=== PATIENT | male | born 1975 | race Caucasian/White ===

== ENCOUNTER 2018-09-24 10:00 | Emergency (ER) | payer MEDICARE, SELFPAY ==
[2018-09-24] MEDS: LORazepam 2 MG/ML SYRINGE IM (09:59)
[2018-09-24] MEDS: diphenhydrAMINE 50 MG/ML VIAL IM (09:59)
[2018-09-24] MEDS: HALOPERIDOL 5 MG/ML VIAL IM (09:59)
[2018-09-24 10:00] VITALS: BP 115/61; PULSE 61; RESP 15; TEMP 36.4; O2SAT 100
--- NOTE | 2018-09-24 10:08 | ED.PSYCH ---
HPI - Psych General Chief Complaint: Psychiatric Symptoms Stated Complaint: Mental Eval/agitation Time Seen by Provider: 09/24/18 10:00 Source: patient, EMS and police Mode of arrival: EMS History of Present Illness HPI Narrative: This is a 42-year-old male who is brought to the emergency department for agitation. He was at the local grocery store screaming and yelling profanities at patient's. He is normally in a wheelchair according to EMS but can't get up at lunch. They are unsure if he can actually walk or not. One of the EMS crew is very familiar with the patient as well as PD and states that he is often quite agitated and verbally abusive. It sounds as if there may be a psychiatric history as well. In the last week he has been talking about God frequently, there was a description of patient trying jumping in front of a train remotely in the past. Today patient is refusing any evaluation and is generous in the use of the word bitch and cunt to the entire staff. I did ask if we could evaluate him and he does refused. Was asked if he can obtain blood work or urine and he refuses at this time. He can tell me that he wants me to do what God says. He can tell me his name, the year he knows that he is at [facility]. He refuses to answer any other questions at this time other than to state that I need to do what God wants. Review of Systems Review of Systems ROS Unobtainable: Unobtainable due to mental condition Exam Narrative Exam Narrative: GENERAL: Alert and oriented x three, Male in moderate distress. Patient is agitated. HEENT: Head normocephalic, atraumatic, EOMI, pupils reactive, face symmetric, moist mucous membranes NECK: Supple, full range of motion CARDIOVASCULAR: Regular rate and rhythm without murmurs, rubs or gallops. RESPIRATORY: Breath sounds equal bilaterally, no wheezes rales or rhonchi. ABDOMEN: Soft, nontender. Normoactive bowel sounds all 4 quadrants. No guarding or rebound, rigidity, no mass : No CVA tenderness, Normal male genitalia. EXTREMITIES: Patient has full range of motion of his upper extremities. Patient has some left lower extremity patient's 1st 2nd and 3rd toes have cyanosis they fevers slightly cooler but not cold to the touch in comparison to the other toes. Patient does have a palpable dorsalis pedis as well as femoral pulse. NEUROLOGICAL: Cranial nerves II through XII grossly intact. Moving all extremities SKIN: Warm, dry, no petechiae, no rashes. Initial Vital Signs Initial Vital Signs: Vital Signs Temperature 97.6 F 09/24/18 10:00 Pulse Rate 61 09/24/18 10:00 Respiratory Rate 15 09/24/18 10:00 Blood Pressure 115/61 09/24/18 10:00 Pulse Oximetry 100 09/24/18 10:00 Scores GCS Amos coma scale eye opening: Spontaneous Amos coma scale verbal response: Orientated Brooks coma scale motor response: Obey commands ( Does not obey commands but has full use of his limbs) Brooks coma scale total score: 15 Course Orders Ordered: ED Orders 09/24/18 10:07 Consult to [facility] Stat 09/24/18 11:08 Acetaminophen Stat Complete Blood Count AUTO DIFF Stat Comprehensive Metabolic Panel Stat Ethanol (ETOH) Stat Salicylate Stat Thyroid Stimulating Hormone Stat 09/24/18 11:11 US arterial duplex LE LT Stat XR foot LT 2V Stat 09/24/18 11:13 US periph venous low extrem lt Stat 09/24/18 11:23 Urine Drug Screen, Rapid Stat Discontinued Medications Diphenhydramine HCl (Benadryl) 50 mg IM NOW ONE Stop: 09/24/18 10:28 Last Admin: 09/24/18 09:59 Dose: 50 mg Haloperidol (Haldol) 5 mg IM NOW ONE Stop: 09/24/18 10:28 Last Admin: 09/24/18 09:59 Dose: 5 mg Lorazepam (Ativan) 2 mg IM NOW ONE Stop: 09/24/18 10:29 Last Admin: 09/24/18 09:59 Dose: 2 mg Vital Signs - 8 hr 09/24/18 13:20 09/24/18 17:15 Pulse Rate 58 L 70 Respiratory Rate 15 16 Blood Pressure [Left Arm] 116/71 124/81 Pulse Oximetry 100 100 [facility] - Psych Lab Data Attestation: I reviewed the patient's lab results. Result diagrams: 09/24/18 11:08 09/24/18 11:08 Lab Results 09/24/18 09/24/18 09/24/18 Range/Units 11:08 11:08 11:08 WBC 7.9 (4.5-11.0) X10^3/uL RBC 4.19 L (4.5-5.9) X10^6/uL Hgb 12.7 L (13.5-17.5) g/dL Hct 39.2 L (41-53) % MCV 93.6 (80-100) fL MCH 30.4 (26-34) PG MCHC 32.4 (30-36) % RDW 14.8 (11.6-14.8) % Plt Count 323 (150-400) X10^3/uL Neut % (Auto) 71.2 (50-75) % Lymph % (Auto) 21.1 L (25-40) % [place] % (Auto) 7.2 (3-14) % Eos % (Auto) 0.4 L (2-4) % Baso % (Auto) 0.1 (0-2) % Neut # (Auto) 5600 (3997-1219) /uL Lymph # (Auto) 1700 (6863-0221) /uL [place] # (Auto) 600 (0-900) /uL Eos # (Auto) 0 (0-450) /uL Baso # (Auto) 0 (0-100) /uL Sodium 140 (137-145) mmol/L Potassium 4.5 (3.4-5.1) mmol/L Chloride 104 (98-107) mmol/L Carbon Dioxide 27 (22-32) mmol/L BUN 17 (9-20) mg/dL Creatinine 0.70 (0.66-1.25) mg/dL Estimated GFR > 60.0 (>60) mL/min BUN/Creatinine Ratio 24.3 H (6-22) Glucose 99 (70-100) mg/dL Calcium 9.0 (8.4-10.2) mg/dL Total Bilirubin 0.7 (0.2-1.3) mg/dL AST 23 (17-59) IU/L ALT 29 (21-72) IU/L Alkaline Phosphatase 214 H (38-126) U/L Total Protein 7.6 (6.3-8.2) g/dL Albumin 4.3 (3.5-5.0) g/dL Globulin 3.3 (1.7-4.1) g/dL Albumin/Globulin Ratio 1.3 (1.0-2.8) TSH 0.94 (0.47-4.68) uIU/mL Salicylates < 1.0 (<20) mg/dL Urine Opiates Screen (Negative) Ur Oxycodone Screen (Negative) Urine Methadone Screen (Negative) Acetaminophen < 10 L (10-30) ug/mL Ur Barbiturates Screen (Negative) U Tricyclic Antidepress (Negative) Ur Phencyclidine Scrn (Negative) Ur Amphetamines Screen (Negative) U Methamphetamines Scrn (Negative) Ur MDMA Scrn (Ecstasy) (Negative) U Benzodiazepines Scrn (Negative) Urine Cocaine Screen (Negative) U Marijuana (THC) Screen (Negative) Ethyl Alcohol < 10 mg/dL 09/24/18 Range/Units 11:23 WBC (4.5-11.0) X10^3/uL RBC (4.5-5.9) X10^6/uL Hgb (13.5-17.5) g/dL Hct (41-53) % MCV (80-100) fL MCH (26-34) PG MCHC (30-36) % RDW (11.6-14.8) % Plt Count (150-400) X10^3/uL Neut % (Auto) (50-75) % Lymph % (Auto) (25-40) % [place] % (Auto) (3-14) % Eos % (Auto) (2-4) % Baso % (Auto) (0-2) % Neut # (Auto) (2677-0033) /uL Lymph # (Auto) (6980-3691) /uL [place] # (Auto) (0-900) /uL Eos # (Auto) (0-450) /uL Baso # (Auto) (0-100) /uL Sodium (137-145) mmol/L Potassium (3.4-5.1) mmol/L Chloride (98-107) mmol/L Carbon Dioxide (22-32) mmol/L BUN (9-20) mg/dL Creatinine (0.66-1.25) mg/dL Estimated GFR (>60) mL/min BUN/Creatinine Ratio (6-22) Glucose (70-100) mg/dL Calcium (8.4-10.2) mg/dL Total Bilirubin (0.2-1.3) mg/dL AST (17-59) IU/L ALT (21-72) IU/L Alkaline Phosphatase (38-126) U/L Total Protein (6.3-8.2) g/dL Albumin (3.5-5.0) g/dL Globulin (1.7-4.1) g/dL Albumin/Globulin Ratio (1.0-2.8) TSH (0.47-4.68) uIU/mL Salicylates (<20) mg/dL Urine Opiates Screen Negative (Negative) Ur Oxycodone Screen Negative (Negative) Urine Methadone Screen Negative (Negative) Acetaminophen (10-30) ug/mL Ur Barbiturates Screen Negative (Negative) U Tricyclic Antidepress Negative (Negative) Ur Phencyclidine Scrn Negative (Negative) Ur Amphetamines Screen Negative (Negative) U Methamphetamines Scrn Negative (Negative) Ur MDMA Scrn (Ecstasy) Negative (Negative) U Benzodiazepines Scrn Negative (Negative) Urine Cocaine Screen Negative (Negative) U Marijuana (THC) Screen Positive H (Negative) Ethyl Alcohol mg/dL Urine Dip Bedside Urine Glucose Negative Bedside Urine Bilirubin - Negative Bedside Urine Ketone - Negative Urine Specific [place] 1.020 Bedside Urine Occult Blood - Negative Bedside Urine pH 6.0 Bedside Urine Protein - Negative Bedside Urine Urobilinogen - Negative Bedside Urine Nitrite - Negative Bedside Urine Leukocytes - Negative Esterase Imaging Data DVT US: Radiologist's impression: [place] [address] Ultrasound Report Signed Patient: Judie Montero#: [id number] : 1975Acct:[id number] Age/Sex: 42 / MDate of Service: 09/24/18 Loc: ED Accession Number: [id number] Procedure: US perip venous low extrem lt Ordering Provider: Jeannie Howard D.O. PROCEDURE: US PERIP VENOUS LOW EXTREM LT INDICATIONS: DISCOLORED TOES TECHNIQUE: Real-time imaging, as well as color and pulse Doppler interrogation, were performed of the lower extremity deep veins from the inguinal ligament to the popliteal fossa. COMPARISON: None. FINDINGS: The deep veins are normally compressible, and free of intraluminal thrombus. Color and pulse Doppler demonstrate normal phasic intraluminal flow. There is normal augmentation response to distal compression maneuver. IMPRESSION: No deep venous thrombosis in the left lower extremity. Dictated by: Dipti Mcdaniels M.D. on 09/24/2018 at 12:28 Approved by: Dipti Mcdaniels M.D. on 09/24/2018 at 12:29 arterial LE US: Radiologist's impression: [address] [address] Ultrasound Report Signed Patient: Dion MonteroMR#: [id number] : 1975Acct:[id number] Age/Sex: 42 / MDate of Service: 09/24/18 Loc: ED Accession Number: [id number] Procedure: US arterial duplex LE LT Ordering Provider: Jeannie Howard D.O. PROCEDURE: US ARTERIAL DUPLEX LE LT INDICATIONS: DISCOLORED TOES TECHNIQUE: Color and pulse Doppler interrogation was performed of the left lower extremity arterial system, with image documentation. COMPARISON: None. FINDINGS: On the grayscale images, no occlusions or focal areas of narrowing are appreciated. 2-vessel flow is evident to the level of the ankle. Common femoral artery: 142 cm/sec, with triphasic flow. Deep femoral artery: 93 cm/sec, with triphasic flow. Proximal superficial femoral artery: 109 cm/sec, with monophasic flow. Mid superficial femoral artery: 132 cm/sec, with monophasic flow. Distal superficial femoral artery: 107 cm/sec, with monophasic flow. Popliteal artery: 103 and cm/sec, with monophasic flow. Posterior tibial artery: 129 cm/sec, with monophasic flow. Anterior tibial artery/dorsalis pedis: 84 cm/sec, with monophasic flow. IMPRESSION: 1. No areas of high-grade narrowing or occlusion are evident within the left lower extremity arterial system. There is at least 2 vessel flow to the level of the ankle. 2. Transition from triphasic to monophasic waveforms at the beginning of the superficial femoral artery does raise the question of possible narrowing of the origin of this vessel, which is not apparent on this exam. The need for better characterization utilizing CT angiography of the left lower extremity arterial system may be determined clinically. Dictated by: Danny Onofre M.D. on 09/24/2018 at 11:02 Approved by: Danny Onofre M.D. on 09/24/2018 at 11:07 foot xray: Radiologist's impression: Dion Montero 42 M [address] [address] XRay Report Signed Patient: Dion MonteroMR#: [id number] : 1975Acct:[id number] Age/Sex: 42 / MDate of Service: 09/24/18 Loc: ED Accession Number: [id number] Procedure: XR foot LT 2V Ordering Provider: Jeannie Howard D.O. PROCEDURE: XR FOOT LT 2V INDICATIONS: Discoloration of 1,2,3 toes TECHNIQUE: 3 views of the foot were acquired. COMPARISON: None. FINDINGS: Bones: The bone mineralization is diffusely decreased in which does result in difficulty evaluating for subtle fractures. No displaced fractures or dislocations are appreciated. There are prominent degenerative changes noted involving the subtalar joints. There may also be degenerative changes of the tibiotalar joint. Postoperative changes of the distal tibia are incidentally noted, not completely evaluated on this exam. Soft tissues: No radiopaque foreign bodies are evident. The overlying soft tissues are within normal limits. IMPRESSION: 1. Osteopenia without acute fracture evident. 2. Moderate degenerative changes of the hindfoot joints. Dictated by: Danny Onofre M.D. on 09/24/2018 at 11:07 Approved by: Danny Onofre M.D. on 09/24/2018 at 11:09 [facility] Narrative Medical decision making narrative: patient was given a be 54 as he has been physically aggressive in the past Um and refusing any evaluation or a discussion at this time. Per PD and EMS provider that is familiar with the patient from another city locally he is often physically aggressive. There is likely psychiatric history. Patient is not well known to us here at this ER. Attempted to obtain records from [facility]. Social work consult. Records were obtained from [facility] patient had a lower extremity that seemed a little bit redder at that time. He had had injury to his left lower extremity and required sutures to be removed. Patient had some coldness of the left lower leg at that ER stay in July and had arterial ultrasound which showed no significant arterial stenosis notices in the left lower extremity and normal wave through forms throughout. Images were pushed to [facility]. I spoke with Ambreen Alvarenga with vascular. Discussed case. They feel that if patient has a palpable femoral Pulses and no clear stenosis or narrowing although there is change of triphasic to monophasic waveform patient could have this followed up as an outpatient after several weeks and did not need acute intervention. They will not do anything with his toes and see if the improve or worsen. We did discuss that patient has a psychiatric history and the likelihood of him following up at this time in a outpatient setting is unlikely. Patient really evaluated he has a little bit more coherent at this time but still uncooperative and continues to tell me that everyone needs to obey and is verbally abuse to staff. When I asked about his toes he states that they are not his toes, they do not belong to him someone else put them there. And they were not given to him by God. Patient when asked if he had been out in the elements or exposed potentially for frostbite being the cause patient restates the same. We have had recent very cold weather so this could potentially be cause. Patient was also a kicked out of the [employer] and put on no trespassing because of his interactions. Patient states it is because he is in a wheelchair but when we discussed that he has been in a wheelchair and staying there he re-states it is because it is in a wheelchair. Patient makes multiple references to God stating that the police, ER staff and no one else are obeying but that he does. He also makes other statements that I am unable to understand. [facility] contacted and is dispatching for evalution. Patient signed out to Dr. Reyes while awaiting evaluation. Discharge Plan Departure Clinical Impression: Acute psychosis
--- NOTE | 2018-09-24 10:16 | PC.NURSE ---
Patient sitting up on bed had scooted over to door since unable to walk...asked for his notebook and pen and then when we did not comply he began cursing and yelling at us...refusing to give answers to Triage questions, calling us names
--- NOTE | 2018-09-24 10:20 | PC.NURSE ---
Patient scooted back over to mattress on floor and is now laying down resting quietly
--- NOTE | 2018-09-24 10:21 | PC.NURSE ---
Patient refused to let us take his vitals and yelled profanities at us in asking him if we could do so
--- NOTE | 2018-09-24 10:22 | PC.NURSE ---
patient not continues to appear angry, yell, and be uncooperative. pt able sat up appears to be fumbling with legs, then scoots self to door, demanding paper and pen. again explained to patient due to his impulsive inappropriate behavior pt will not be allowed these items at this time. pt begin yelling again calling staff fucking bitch, and cunt then begins yelling different phrases involving god. due to pt arriving being uncooperative and law enforcement was not able to search for weapons increases the unsafe feeling. law enforcement returning for search and to change patient out of his street clothes safely. unknown if pt has weapons of any kind in his layers of clothing.
--- NOTE | 2018-09-24 10:24 | PC.NURSE ---
Patient refused to cooperate and let us take his clothes off him so [employer] said they are returning with the [employer] and will assist us in getting patient undressed out of his street clothes and into our scrubs.
--- NOTE | 2018-09-24 10:38 | PC.NURSE ---
Patient resting on bed and noted rise and fall of chest and his hand movement occasionally, patient laying on their side facing the wall
--- NOTE | 2018-09-24 10:47 | PC.NURSE ---
Patient continues to lay down on bed facing the wall Have noted patient's rise and fall of back and slight hand movement from time to time
--- NOTE | 2018-09-24 11:09 | PC.NURSE ---
[place] police officers came by ER to assist with removing patient's clothing and shoes, we helped patient into disposable scrubs and gave him warm blankets. Patient was resisting and cursing at us, but we were able to remove his clothing and get scrubs on him...RN was able to obtain his vital signs and draw some blood from the patient with police assist....patient now resting on mattress
--- NOTE | 2018-09-24 11:11 | DI.RAD.S_ITS ---
PROCEDURE: XR FOOT LT 2V INDICATIONS: Discoloration of 1,2,3 toes TECHNIQUE: 3 views of the foot were acquired. COMPARISON: None. FINDINGS: Bones: The bone mineralization is diffusely decreased in which does result in difficulty evaluating for subtle fractures. No displaced fractures or dislocations are appreciated. There are prominent degenerative changes noted involving the subtalar joints. There may also be degenerative changes of the tibiotalar joint. Postoperative changes of the distal tibia are incidentally noted, not completely evaluated on this exam. Soft tissues: No radiopaque foreign bodies are evident. The overlying soft tissues are within normal limits. IMPRESSION: 1. Osteopenia without acute fracture evident. 2. Moderate degenerative changes of the hindfoot joints. Dictated by: Danny Onofre M.D. on 09/24/2018 at 11:07 Approved by: Danny Onofre M.D. on 09/24/2018 at 11:09
--- NOTE | 2018-09-24 11:11 | DI.US.S_ITS ---
PROCEDURE: US ARTERIAL DUPLEX LE LT INDICATIONS: DISCOLORED TOES TECHNIQUE: Color and pulse Doppler interrogation was performed of the left lower extremity arterial system, with image documentation. COMPARISON: None. FINDINGS: On the grayscale images, no occlusions or focal areas of narrowing are appreciated. 2-vessel flow is evident to the level of the ankle. Common femoral artery: 142 cm/sec, with triphasic flow. Deep femoral artery: 93 cm/sec, with triphasic flow. Proximal superficial femoral artery: 109 cm/sec, with monophasic flow. Mid superficial femoral artery: 132 cm/sec, with monophasic flow. Distal superficial femoral artery: 107 cm/sec, with monophasic flow. Popliteal artery: 103 and cm/sec, with monophasic flow. Posterior tibial artery: 129 cm/sec, with monophasic flow. Anterior tibial artery/dorsalis pedis: 84 cm/sec, with monophasic flow. IMPRESSION: 1. No areas of high-grade narrowing or occlusion are evident within the left lower extremity arterial system. There is at least 2 vessel flow to the level of the ankle. 2. Transition from triphasic to monophasic waveforms at the beginning of the superficial femoral artery does raise the question of possible narrowing of the origin of this vessel, which is not apparent on this exam. The need for better characterization utilizing CT angiography of the left lower extremity arterial system may be determined clinically. Dictated by: Danny Onofre M.D. on 09/24/2018 at 11:02 Approved by: Danny Onofre M.D. on 09/24/2018 at 11:07
[2018-09-24 11:13] LABS: Add Manual Diff / Slide Review NO; Basophils Absolute Auto 0 /uL (0-100); Basophils Percent Auto 0.1 % (0-2); Eosinophils Absolute Auto 0 /uL (0-450); Eosinophils Percent Auto 0.4 % (2-4); Hematocrit 39.2 % (41-53); Hemoglobin 12.7 g/dL (13.5-17.5); Lymphocytes Absolute Auto 1700 /uL (1100-4500); Lymphocytes Percent Auto 21.1 % (25-40); Mean Corpuscular HGB Conc 32.4 % (30-36); Mean Corpuscular Hemoglobin 30.4 PG (26-34); Mean Corpuscular Volume 93.6 fL (80-100); Monocytes Absolute Auto 600 /uL (0-900); Monocytes Percent Auto 7.2 % (3-14); Neutrophils Absolute Auto 5600 /uL (1500-7000); Neutrophils Percent Auto 71.2 % (50-75); Platelet Count 323 X10^3/uL (150-400); Red Blood Cell Count 4.19 X10^6/uL (4.5-5.9); Red Cell Distribution Width 14.8 % (11.6-14.8); White Blood Cell Count 7.9 X10^3/uL (4.5-11.0)
--- NOTE | 2018-09-24 11:13 | DI.US.S_ITS ---
PROCEDURE: US PERIPH VENOUS LOW EXTREM LT INDICATIONS: DISCOLORED TOES TECHNIQUE: Real-time imaging, as well as color and pulse Doppler interrogation, were performed of the lower extremity deep veins from the inguinal ligament to the popliteal fossa. COMPARISON: None. FINDINGS: The deep veins are normally compressible, and free of intraluminal thrombus. Color and pulse Doppler demonstrate normal phasic intraluminal flow. There is normal augmentation response to distal compression maneuver. IMPRESSION: No deep venous thrombosis in the left lower extremity. Dictated by: Dipti Mcdaniels M.D. on 09/24/2018 at 12:28 Approved by: Dipti Mcdaniels M.D. on 09/24/2018 at 12:29
--- NOTE | 2018-09-24 11:13 | PC.NURSE ---
Gave patient warm blanket and pillow for his head
[2018-09-24 11:25] LABS: Acetaminophen < 10 ug/mL (10-30); Alanine Aminotransferase 29 IU/L (21-72); Albumin 4.3 g/dL (3.5-5.0); Albumin Globulin Ratio 1.3 (1.0-2.8); Alkaline Phosphatase 214 U/L (38-126); Aspartate Aminotransferase 23 IU/L (17-59); BUN Creatinine Ratio 24.3 (6-22); Bilirubin Total 0.7 mg/dL (0.2-1.3); Blood Urea Nitrogen 17 mg/dL (9-20); Carbon Dioxide 27 mmol/L (22-32); Chloride 104 mmol/L (98-107); Estimated Glomerular Filt Rate > 60.0 mL/min (>60); Ethanol (ETOH) < 10 mg/dL; Globulin 3.3 g/dL (1.7-4.1); Glucose 99 mg/dL (70-100); HEMOLYSIS < 15 (0-50); Potassium 4.5 mmol/L (3.4-5.1); Sodium 140 mmol/L (137-145); Total Protein 7.6 g/dL (6.3-8.2)
[2018-09-24 11:30] LABS: Salicylate < 1.0 mg/dL (<20)
--- NOTE | 2018-09-24 11:54 | PC.NURSE ---
Stood by assist for [employer] and X-ray Jumia for testing, patient cooperative and then asked for lunch... stated she will order patient lunch tray
[2018-09-24 12:08] LABS: Urine Tetrahydrocannabinol Positive (Negative)
[2018-09-24 12:09] LABS: Urine Amphetamines Negative (Negative); Urine Barbiturates Negative (Negative); Urine Benzodiazepines Negative (Negative); Urine Cocaine Negative (Negative); Urine MDMA Negative (Negative); Urine Methadone Negative (Negative); Urine Methamphetamines Negative (Negative); Urine Morphine/Opi cutoff 2000 Negative (Negative); Urine Oxycodone Negative (Negative); Urine Phencyclidine Negative (Negative); Urine Tricyclic Antidepressant Negative (Negative)
[2018-09-24 12:21] LABS: Thyroid Stimulating Hormone 0.94 uIU/mL (0.47-4.68)
--- NOTE | 2018-09-24 12:22 | PC.NURSE ---
Attempted to awake patient to give him lunch tray, but he did not wake up to eat...will offer lunch tray later
--- NOTE | 2018-09-24 13:05 | PC.NURSE ---
Keep trying to offer patient his lunch tray but patient refusing and choosing to sleep instead
[2018-09-24 13:20] VITALS: BP 116/71; PULSE 58; RESP 15; O2SAT 100
--- NOTE | 2018-09-24 13:20 | PC.NURSE ---
Patient asked for his right leg to be raised so placed it on a pillow for more comfort
--- NOTE | 2018-09-24 14:43 | PC.NURSE ---
Have offered patient lunch tray and he asked what was on it and declined food
--- NOTE | 2018-09-24 14:59 | PC.NURSE ---
Gave patient chocolate pudding
[2018-09-24 17:15] VITALS: BP 124/81; PULSE 70; RESP 16; O2SAT 100
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
--- NOTE | 2018-09-24 17:54 | PC.NURSE ---
Went with Hollie Montejo into patient's room to assist her with talking with the patient and she was able to get some information from him, but he spoke at a low volume with blanket over his face and spoke very quickly and at times did not make sense with what he was saying...
--- NOTE | 2018-09-24 18:12 | PC.NURSE ---
pt appears angry, pt states wheres my dinner bitch pt then states god my father no one is telling the truth, god my father lies lies pt appears to be escalating, pt having angry expressions, pt grinding teeth. pt raising voice states give me my food bitch, give me my food cunt. pt asked to stop address staff with these statements, and name calling. pt again repeats name calling of bitch and cunt
--- NOTE | 2018-09-24 18:16 | PC.NURSE ---
MAGGI/ELSIE Note: Pt. started to yell out loud I need to pee. why you disobeying god cunt I assisted Pt. with urinal. Pt. kept yelling out loud. Kayla came in and Pt. kept insulting her calling her a bitch. MARINE SERVICE STATION ATTENDANT-ELSIE Herr , NORMA Salomon, and myself witnessed in the room. notified.
--- NOTE | 2018-09-24 18:30 | PC.NURSE ---
AUTOMATIC BANDSAW TENDER/ELSIE Note: Pt. is still yelling out. Pt. is requesting to call the police. Pt. stated you people don't deserve to live. honest to god. disobeying god. RN notified.
--- NOTE | 2018-09-24 19:05 | PC.NURSE ---
SOLAR ENERGY INSTALLATION MANAGER Pt asking how many lies am I going to be told in this hospital then mumbling to self.
--- NOTE | 2018-09-24 19:19 | PC.NURSE ---
pt is wheelchair bound, pt appears to have bilateral foot drop. feet are grossly unkept. toe nails are long, curling over, feet smell and are very dirty. toes are black in color, and peeling.
--- NOTE | 2018-09-24 19:29 | PC.NURSE ---
sludge control attendant pt given dinner tray. Aggitated about meal and juice on tray. Took off apple juice and gave orange juice. Sitting up in bed with tray on lap eating.
--- NOTE | 2018-09-24 19:31 | PC.NURSE ---
nut grader Asking to borrow a cellphone so he can make a call. States we are keeping him from calling people he needs to call.
--- NOTE | 2018-09-24 19:40 | PC.NURSE ---
electro mechanical engineer pt kicked tray off bed when finished and started asking about cellphone. nurse entered room to talk to patient about why he cant use phone until someone comes in to talk to him
--- NOTE | 2018-09-24 19:40 | PC.NURSE ---
Responded to pt room as he was calling out for phone call, calling aide names, threw tray off bed. Pt states Cunt! Call me Asshole when you speak to me!! Informed DSR would be here within 2 hours. States Call me Asshole when you speak to me Cunt! Pt asked to keep his voice down. Door shut 75% to decrease stimulation. Pt rolled over and closed eyes.
--- NOTE | 2018-09-24 20:54 | PC.NURSE ---
credit reporter pt lying on side facing the wall sleeping
--- NOTE | 2018-09-24 23:46 | PC.NURSE ---
outside sales representative insurance pt sleeping
[2018-09-25] VITALS (7 sets, daily range): BP systolic 98–104; BP diastolic 59–62; PULSE 63; RESP 16–18; O2SAT 98
--- NOTE | 2018-09-25 02:08 | PC.NURSE ---
0208 Patient yelled. I asked if I could help with anything. He said yes, you black bitch you can go to hel. I said Excuse me? Patient didn't respond. Told RN.
--- NOTE | 2018-09-25 02:40 | PC.NURSE ---
Patient began cursing and praying saying that he damns all those on this earth, excluding children, heavenly father. Patient then yawned and stopped talking
--- NOTE | 2018-09-25 02:49 | PC.NURSE ---
Patient continuously praying while under the blankets to God the father. Patient is praying for damnation of staff and the rest of the earth. Then shouted out that you are a cunt to me. I asked if he wanted anything to drink. He said juice or soda. I said I may not have those, would he like water. He said no I do not want vodka.
--- NOTE | 2018-09-25 03:10 | PC.NURSE ---
0310 while doing vitals asked patient to stop talking so I could get a reading patient made anti female remarks then started talking to God and praying more
--- NOTE | 2018-09-25 03:45 | PC.NURSE ---
FOOD SAFETY SCIENTIST note: patient is cursing at staff and praying. Turned off lights in hopes he sleeps. He is just in there under the blankets swearing.
--- NOTE | 2018-09-25 05:10 | PC.NURSE ---
STATION AIR TRAFFIC CONTROL SPECIALIST note: patient yelling out about having a court and you need to get me to court you dumb bitch. I told him don't call be a dumb bitch. He said well then don't be a cunt.
--- NOTE | 2018-09-25 07:39 | PC.NURSE ---
Patient mentioned that he had a court hearing today and that he has a pending warrant...he said that we should all and that because he is not allowed to bear arms he can't help get rid of all the people who don't belong
--- NOTE | 2018-09-25 08:23 | PC.NURSE ---
Offered patient breakfast tray and he again asked about what time it was and that he has a court date today at 830a to 9a and that we brought him here illegally and I informed him that I am in process of checking out if he does have a court date appearance today...need to wait until [address] office [address]....
--- NOTE | 2018-09-25 08:28 | PC.NURSE ---
Informed patient that breakfast available and he has declined the meal at this time
--- NOTE | 2018-09-25 08:55 | PC.NURSE ---
pt escalating in behavior. pt demanding food tray. Food tray checked for safety and offered to patient, pt refusing. pt begins yelling states i was illegally brought here. pt's door partially closed to decrease stimulation of outside noises to calm patient. pt yelling ok god my father, id like a service department manager god my father, they dont like the truth god my father so they closed the door god my father.
--- NOTE | 2018-09-25 08:55 | PC.NURSE ---
Called [facility] court and was informed that patient has court appointment today at , informed them that he will be unable to attend and they requested a note from our ER physician stating that...Faxed over the Dr's note to [facility] court so they are aware that he is unable to attend
--- NOTE | 2018-09-25 09:00 | PC.NURSE ---
Patient asked how long he will be here and started yelling and using profanity and stating that all of us deserve to !.....then covers his head with a blanket
--- NOTE | 2018-09-25 09:06 | PC.NURSE ---
Anytime try to interact with patient to offer breakfast, update him or ask if needs anything he begins yelling that we all deserve to ...that the world is overpopulated with too many people that don't deserve to be here
--- NOTE | 2018-09-25 09:10 | PC.NURSE ---
Patient states that I am not obeying God's law
--- NOTE | 2018-09-25 09:16 | PC.NURSE ---
Patient asked what time is it?....
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
--- NOTE | 2018-09-25 11:23 | PC.NURSE ---
Patient asked Why did you take the plate? Patient asked what time is it?...informed him and he stated Oh heavenly father I am patiently waiting Oh God my father Brought patient urinal and when he was done he accidentally spilled some of the urine on the floor Patient asked how long is has to stay in the room illegally?
--- NOTE | 2018-09-25 11:49 | PC.NURSE ---
Lunch janna arrived and offered it to patient, he declined for now....
--- NOTE | 2018-09-25 12:17 | PC.NURSE ---
Patient asked who is wearing my clothes? Informed him that no one is and that they have been placed safely in patient belonging bags and locked up for him.
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
--- NOTE | 2018-09-25 12:35 | PC.NURSE ---
pt escalating, pt raising voice. attempted to calm pt by talking about his son, pt raises voice states why do you care bitch states why is she not arrested bitch, states whyd she take my sons virginity without asking bitch. pt continues to repeat self.
--- NOTE | 2018-09-25 12:51 | PC.NURSE ---
Marisol GENAO at bedside.
--- NOTE | 2018-09-25 12:55 | PC.NURSE ---
DCR arrived and is speaking with the patient, he expressed you people don't deserve to live Asked DCR when he will be able to see his son...
--- NOTE | 2018-09-25 13:05 | PC.NURSE ---
Patient very agitated. Talking to self and being verbally abusive to any staff who tries to interact. Continuously calling bitch and cunt whenever trying to assist him. Refusing to answer nurses questions on what meds he takes. Thinks he is talking to God.
--- NOTE | 2018-09-25 13:07 | PC.NURSE ---
Patient saying intentionally going to piss on the floor
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
--- NOTE | 2018-09-25 13:16 | PC.NURSE ---
Patient asking to see DCR. When try and explain they are coming in the room shortly gets very agitated and begins calling me a bitch.
--- NOTE | 2018-09-25 13:19 | PC.NURSE ---
Marisol DCR here for evaluation. attempted to get pt's medications he was dc'd with at the last admission at [facility] to help treat pt's current symptoms of yelling at staff, cursing, speaking about god. [facility] refused to provide information. pt continues to call staff punk andressa juarez pt refusing to take oral medications for symptoms. states i am calm, then yells at staff calling names little bitch, stupid bitch. pt uncooperative, impulsive, irrational, pt angry, balling up fists, griting teeth, and raising upper body off bed. talked to dr meza who ordered IM zyprexa, pt continues to yell at staff, and become more escalated. IM administered into left leg, pt tolerated injection physically without difficulty, verbally continues inappropriate comments and behaviro.
--- NOTE | 2018-09-25 13:22 | PC.NURSE ---
Patient continuing to be very agitated. Asking for his clothes, repeatedly calling larry and carlo.
[2018-09-25] MEDS: OLANZapine 10 MG VIAL IM (13:26)
--- NOTE | 2018-09-25 13:59 | PC.NURSE ---
Patient still agitated. When I do not respond to his yelling he says you're ignoring the son of God and going to susu juarez.
--- NOTE | 2018-09-25 14:33 | PC.NURSE ---
Patient continues to yell out when am I going to out of this room carlo juarez?....
--- NOTE | 2018-09-25 14:44 | PC.NURSE ---
Attempted to take patient's vitals and he refused to cooperate
--- NOTE | 2018-09-25 14:44 | PC.NURSE ---
Patient stated Am I being held illegally bitch? Patient state How am I going to get to the [facility] bit?...then says the cunt bitmike refuses to answer! what time do i get to check in bitch?' ...the states they're not going to let me check in god, that bitch won't. what you looking bitch?'' hey Bitch your going to hel ...then yelled random things. hey bitch when can i speak w/ that DCR cunt?'' Patient calling out Hello!....then states they're not answering God! They are going to ignore me God! When do I get to go to the [facility]? What time is it cunt bitch? Cunt are you going to let me use the phone?
--- NOTE | 2018-09-25 15:20 | PC.NURSE ---
Patient asked where is my dinner bitch?...
--- NOTE | 2018-09-25 15:25 | PC.NURSE ---
Addendum entered by Autumn Garg R.N. 09/25/18 22:12: @2212 Pt asks, What time is it, population bitch? This RN provided time. Patient mumbled, God my Father, dad, patient, person, God my father, I want to blow this planet up, god my father, these people that don't deserve to be here. Patient stays wrapped in blanket, hiding face. Original Note: Addendum entered by Autumn Garg R.N. 09/25/18 21:37: @2130 pt requested urinal; voided 200 ml Original Note: Addendum entered by Autumn Garg R.N. 09/25/18 20:36: @ 2000 Pt resting, repositioning independently in bed; pt declined vital signs to rn dischargeTobin Original Note: Addendum entered by Autumn Garg R.N. 09/25/18 17:36: @ 1645 pt urinated on floor. This RN cleaned urine with blanket. Original Note: Addendum entered by Autumn Garg R.N. 09/25/18 17:33: @ 1735 pt says, God my father, except myself and maybe 100 people deserve to live on this planet. The rest deserve to . That is the truth. The whole lyons truth. Original Note: Addendum entered by Autumn Garg R.N. 09/25/18 17:31: @1700 pt declines dinner Original Note: Addendum entered by Autumn Garg R.N. 09/25/18 16:13: @1605 pt yelled, When's dinner bitch, cunt? This RN looked in room, and stated, at 5. Pt under bed covers, on side, facing door, although face not visible. Patient continues to turn frequently in bed, restless. Pt reciting, God the father, are you obeying God, you are going to hell, you dumb bitch. This RN asked patient, are you hungry. Pt responds, redirects the question. @1622 this RN asks patient, are you thirsty, can I get you some chocolate milk? Patient responds with, I would like to know when you are going to obey god, I would razor blade vaginas, you people who work for the [employer], 95% are going to [facility] Original Note: @ 8086 pt sleeping
--- NOTE | 2018-09-25 15:51 | CM.SWNOTE ---
COCOA BEAN CLEANER Note: Received call this AM re: detainment and placement. Spoke with RN/Umm whom reports that patient waiting on bed for involuntary placement. COCOA BEAN CLEANER placed call to [facility]. Assigned DCR is Marisol Moore cell# [phone]. Per Marisol, she will come to [facility] today and re-attempt bed placement. As of 4:00pm no bed found. Notified ED/COCOA BEAN CLEANER Hollie of above. P: Pending psychiatric placement. RITA Phillips
--- NOTE | 2018-09-25 17:12 | ED.PSYCH ---
HPI - Psych General Chief Complaint: Psychiatric Symptoms Stated Complaint: Mental Eval/agitation Time Seen by Provider: 09/24/18 10:00 Related Data Home Medications Medication Instructions Recorded Confirmed aripiprazole 10 mg PO DAILY 09/25/18 09/25/18 benztropine 1 mg PO BID 09/25/18 09/25/18 gabapentin 300 mg PO TID 09/25/18 09/25/18 haloperidol 5 mg PO BID 09/25/18 09/25/18 haloperidol 20 mg PO BEDTIME 09/25/18 09/25/18 naloxone [Narcan] 1 dose INTRANASAL DIRECTED 09/25/18 09/25/18 oxycodone 5 mg PO Q4-6H PRN 09/25/18 09/25/18 Exam Initial Vital Signs Initial Vital Signs: Vital Signs Temperature 97.6 F 09/24/18 10:00 Pulse Rate 61 09/24/18 10:00 Respiratory Rate 15 09/24/18 10:00 Blood Pressure 115/61 09/24/18 10:00 Pulse Oximetry 100 09/24/18 10:00 Course Course Narrative: received in signout from Dr. Mcginnis. Patient is obviously not capable of caring for himself and poses significant risk to himself and others if not placed into a psych facility. Will continue to provide a comfortable place for him to sleep and monitor him and hope for better luck with available beds tomorrow Orders Ordered: Discontinued Medications Diphenhydramine HCl (Benadryl) 50 mg IM NOW ONE Stop: 09/24/18 10:28 Last Admin: 09/24/18 09:59 Dose: 50 mg Haloperidol (Haldol) 5 mg IM NOW ONE Stop: 09/24/18 10:28 Last Admin: 09/24/18 09:59 Dose: 5 mg Haloperidol (Haldol) 5 mg IM NOW ONE Stop: 09/25/18 03:55 Last Admin: 09/25/18 04:02 Dose: Not Given Lorazepam (Ativan) 2 mg IM NOW ONE Stop: 09/24/18 10:29 Last Admin: 09/24/18 09:59 Dose: 2 mg Olanzapine (Zyprexa) 10 mg PO NOW ONE Stop: 09/25/18 13:07 Last Admin: 09/25/18 13:26 Dose: Not Given Olanzapine (Zyprexa) 10 mg IM NOW ONE Stop: 09/25/18 13:12 Last Admin: 09/25/18 13:26 Dose: 10 mg Vital Signs - 8 hr 09/25/18 19:15 09/25/18 23:56 Respiratory Rate 16 16 MDM - Psych Lab Data Result diagrams: 09/24/18 11:08 09/24/18 11:08 Lab Results 09/24/18 09/24/18 09/24/18 Range/Units 11:08 11:08 11:08 WBC 7.9 (4.5-11.0) X10^3/uL RBC 4.19 L (4.5-5.9) X10^6/uL Hgb 12.7 L (13.5-17.5) g/dL Hct 39.2 L (41-53) % MCV 93.6 (80-100) fL MCH 30.4 (26-34) PG MCHC 32.4 (30-36) % RDW 14.8 (11.6-14.8) % Plt Count 323 (150-400) X10^3/uL Neut % (Auto) 71.2 (50-75) % Lymph % (Auto) 21.1 L (25-40) % [place] % (Auto) 7.2 (3-14) % Eos % (Auto) 0.4 L (2-4) % Baso % (Auto) 0.1 (0-2) % Neut # (Auto) 5600 (4172-7235) /uL Lymph # (Auto) 1700 (0550-4873) /uL [place] # (Auto) 600 (0-900) /uL Eos # (Auto) 0 (0-450) /uL Baso # (Auto) 0 (0-100) /uL Sodium 140 (137-145) mmol/L Potassium 4.5 (3.4-5.1) mmol/L Chloride 104 (98-107) mmol/L Carbon Dioxide 27 (22-32) mmol/L BUN 17 (9-20) mg/dL Creatinine 0.70 (0.66-1.25) mg/dL Estimated GFR > 60.0 (>60) mL/min BUN/Creatinine Ratio 24.3 H (6-22) Glucose 99 (70-100) mg/dL Calcium 9.0 (8.4-10.2) mg/dL Total Bilirubin 0.7 (0.2-1.3) mg/dL AST 23 (17-59) IU/L ALT 29 (21-72) IU/L Alkaline Phosphatase 214 H (38-126) U/L Total Protein 7.6 (6.3-8.2) g/dL Albumin 4.3 (3.5-5.0) g/dL Globulin 3.3 (1.7-4.1) g/dL Albumin/Globulin Ratio 1.3 (1.0-2.8) TSH 0.94 (0.47-4.68) uIU/mL Salicylates < 1.0 (<20) mg/dL Urine Opiates Screen (Negative) Ur Oxycodone Screen (Negative) Urine Methadone Screen (Negative) Acetaminophen < 10 L (10-30) ug/mL Ur Barbiturates Screen (Negative) U Tricyclic Antidepress (Negative) Ur Phencyclidine Scrn (Negative) Ur Amphetamines Screen (Negative) U Methamphetamines Scrn (Negative) Ur MDMA Scrn (Ecstasy) (Negative) U Benzodiazepines Scrn (Negative) Urine Cocaine Screen (Negative) U Marijuana (THC) Screen (Negative) Ethyl Alcohol < 10 mg/dL 09/24/18 Range/Units 11:23 WBC (4.5-11.0) X10^3/uL RBC (4.5-5.9) X10^6/uL Hgb (13.5-17.5) g/dL Hct (41-53) % MCV (80-100) fL MCH (26-34) PG MCHC (30-36) % RDW (11.6-14.8) % Plt Count (150-400) X10^3/uL Neut % (Auto) (50-75) % Lymph % (Auto) (25-40) % [place] % (Auto) (3-14) % Eos % (Auto) (2-4) % Baso % (Auto) (0-2) % Neut # (Auto) (0895-2768) /uL Lymph # (Auto) (3403-3637) /uL [place] # (Auto) (0-900) /uL Eos # (Auto) (0-450) /uL Baso # (Auto) (0-100) /uL Sodium (137-145) mmol/L Potassium (3.4-5.1) mmol/L Chloride (98-107) mmol/L Carbon Dioxide (22-32) mmol/L BUN (9-20) mg/dL Creatinine (0.66-1.25) mg/dL Estimated GFR (>60) mL/min BUN/Creatinine Ratio (6-22) Glucose (70-100) mg/dL Calcium (8.4-10.2) mg/dL Total Bilirubin (0.2-1.3) mg/dL AST (17-59) IU/L ALT (21-72) IU/L Alkaline Phosphatase (38-126) U/L Total Protein (6.3-8.2) g/dL Albumin (3.5-5.0) g/dL Globulin (1.7-4.1) g/dL Albumin/Globulin Ratio (1.0-2.8) TSH (0.47-4.68) uIU/mL Salicylates (<20) mg/dL Urine Opiates Screen Negative (Negative) Ur Oxycodone Screen Negative (Negative) Urine Methadone Screen Negative (Negative) Acetaminophen (10-30) ug/mL Ur Barbiturates Screen Negative (Negative) U Tricyclic Antidepress Negative (Negative) Ur Phencyclidine Scrn Negative (Negative) Ur Amphetamines Screen Negative (Negative) U Methamphetamines Scrn Negative (Negative) Ur MDMA Scrn (Ecstasy) Negative (Negative) U Benzodiazepines Scrn Negative (Negative) Urine Cocaine Screen Negative (Negative) U Marijuana (THC) Screen Positive H (Negative) Ethyl Alcohol mg/dL Urine Dip Bedside Urine Glucose Negative Bedside Urine Bilirubin - Negative Bedside Urine Ketone - Negative Urine Specific [place] 1.020 Bedside Urine Occult Blood - Negative Bedside Urine pH 6.0 Bedside Urine Protein - Negative Bedside Urine Urobilinogen - Negative Bedside Urine Nitrite - Negative Bedside Urine Leukocytes - Negative Esterase Discharge Plan Departure Patient Disposition: [facility] Clinical Impression: Acute psychosis Prescriptions: No Action haloperidol 5 mg Tablet 5 mg PO BID RF: 0 haloperidol 10 mg Tablet 20 mg PO BEDTIME RF: 0 benztropine 1 mg Tablet 1 mg PO BID RF: 0 gabapentin 300 mg Capsule 300 mg PO TID RF: 0 oxycodone 5 mg tablet 5 mg PO Q4-6H PRN (Reason: pain) RF: 0 aripiprazole 10 mg Tablet 10 mg PO DAILY RF: 0 Narcan 4 mg/actuation spray,non-aerosol 1 dose Intranasal DIRECTED RF: 0
--- NOTE | 2018-09-25 17:14 | PC.NURSE ---
JOURNEYMAN POWERHOUSE OPERATOR/[facility] [place] Note: Pt. refused dinner. Pt. yelled at JOURNEYMAN POWERHOUSE OPERATOR and RN what you want dumb bitch? what dinner bitch? ...and cont. to yell out bitch, cunt. dumb bitch. Pt. refused being cleaned up. Pt. peed on the floor. Pt. is yelling how long am I being held here illegally bitch? RN notified.
--- NOTE | 2018-09-25 19:32 | PC.NURSE ---
EXAMINING OFFICER/CONSUMER SALES REPRESENTATIVE Note: Pt. voided on the floor. Pt. refused to use urinal. Pt. is ignoring help. RN notified.
--- NOTE | 2018-09-25 19:45 | PC.NURSE ---
MACHINE VENEER REPAIRER/ELSIE Note: Pt. seems to be calm and repositioning himself ind. Pt. refused vital signs to be taken. RN notified.
--- NOTE | 2018-09-25 20:08 | PC.NURSE ---
His eyes are closed and his respirations are even and not labored.
--- NOTE | 2018-09-25 20:20 | PC.NURSE ---
I asked him if he would let me take his blood pressure and he called me bitch and told me he would not do anything I asked.He rambled on about [facility] and made no sense with his rantings.I saw he was in no obvious physical distress.
--- NOTE | 2018-09-25 22:48 | PC.NURSE ---
HE WAS OFFERED FOOD AND DRINK,HE CALLED ME AN UNGRATEFULL BITCH AND DECLINED MY OFFER.
--- NOTE | 2018-09-25 23:11 | PC.NURSE ---
SCRIBING MACHINE OPERATOR note: patient is in bed.
--- NOTE | 2018-09-26 00:32 | PC.NURSE ---
ATMOSPHERIC CHEMIST note 0032 patient voided and refused vitals and a snack or drink.
--- NOTE | 2018-09-26 01:02 | PC.NURSE ---
He remains verbally uncooperative.He offers no details about suicidal or homicidal thoughts.He refuses offers for food and drink.
--- NOTE | 2018-09-26 01:28 | PC.NURSE ---
CABANA ATTENDANT note patient yelled out asking what time is it? I told him 1:26 in the morning. He asked if he is going to the [facility] today, I said I don't know I think you're here for right now. And he then yelled out You don't deserve to live, you're a dumb bitch. Cum dump. I said I will ask the nurse if you can go to the mission. He said You don't deserve to live. I hope you . If I had the power I'd touch you and you'd . He continued to yell. I left the room and left the door slightly ajar. I alerted the nursing staff.
--- NOTE | 2018-09-26 02:38 | PC.NURSE ---
SWITCHMAN SUPERVISOR patient yells out when asking if he needs anything. Continually telling staff you don't deserve to live and calling staff punks. Then yelling heeeeeeeeeeeeee. Calling us ignorant honks.
--- NOTE | 2018-09-26 02:39 | PC.NURSE ---
I asked him again if he needed anything,he responded quit asking me questions bitch.I am not going to answer any of your questions.
--- NOTE | 2018-09-26 03:00 | PC.NURSE ---
TIRE CORD WEAVER note: randomly started yelling out God the father, I'm gonna make all of you pay.And talking about God's wrath.
--- NOTE | 2018-09-26 03:03 | PC.NURSE ---
MEDICAL BILLER CODER note Patient yelled out I have to go to court at 8 in the morning! Am I going to go to court? I didn't answer him. Tiffanie matos, answer the question. I said Good, I don't like you calling me that. Stop. It's three in the morning. Right now it is time to sleep. Patient then began to yelling out that you're a dumb cunt! Ignoraheather juarez along with God the father they don't deserve to live. You won't wake up in the morning you ignjaya matos. Patient on bed. Has warm blankets.
--- NOTE | 2018-09-26 04:21 | PC.NURSE ---
Multiple ED physicians have documented that he is gravely disabled and can not care for himself.So far lovely,since I assumed care for him as RN at 1900,he has refused to answer any of my questions or allowed to have vitals taken,He continues to call staff names and verbally threaten them
--- NOTE | 2018-09-26 04:39 | PC.NURSE ---
Refused vitals. Asked if he wanted a shower. Refused, then questioned what kind of shower, if I could stand him up or if it was a tub. Told him it would probably be him sitting on a bedside commode. He refused. Then I offered a bed bath. He refused.
--- NOTE | 2018-09-26 05:51 | PC.NURSE ---
STUDENT FINANCE ADVISOR 0551. Patient asked what time it was, wants to go home to [place]. He started to rant about how he wants us all to and go to hell and I raped all of you. He went on for a couple minutes using profanity throughout. Patient has a warm blanket, door ajar. Offered a snack, a drink, vitals, and shower- refused all.
--- NOTE | 2018-09-26 06:25 | PC.NURSE ---
INSPECTOR EYEGLASS FRAMES note: patient asked what time it was. Told him 6:23. He then started to ramble about going to hell and how they took the plate out of his leg and everyone in [place] is going to hell.
--- NOTE | 2018-09-26 06:41 | PC.NURSE ---
0641 BLAST HOLE DRILLER note: moved patient into room 12. Patient was shouting when moving him. Then told this aide I wish you're going to be murdered. You will be murdered. He continued to go on about murder and and God for a minute or so. Patient in room. Sitting outside the room.
--- NOTE | 2018-09-26 07:47 | PC.NURSE ---
Patient quiet at the moment. When I first arrived to take over for the PM sitter and he heard us talking he interjected with calling us bitches and thought he was talking to God.
[2018-09-26 08:16] VITALS: BP 121/80; PULSE 67; RESP 16; O2SAT 100
--- NOTE | 2018-09-26 08:40 | PC.NURSE ---
Patient yelling we're illegally holding him here and asking us to call the court because he is supposed to have a court date tomorrow. Offered him breakfast tray, refused. Saying we don't deserve to live and telling me to .
--- NOTE | 2018-09-26 08:42 | PC.NURSE ---
Patient yelling he is the son of God and that we all are very truly dumb and deserve to .
[2018-09-26] MEDS: OLANZapine 10 MG VIAL IM (08:50)
--- NOTE | 2018-09-26 08:52 | PC.NURSE ---
Patient asked whats for breakfast and was given his breakfast tray and cup of orange juice as requested. However when nurse informed him she had to give him his medication the patient become very agitated and repeatedly called her a bitch cunt and refused to eat the breakfast tray.
--- NOTE | 2018-09-26 08:53 | PC.NURSE ---
while pt recieving medication pt begins yelling at staff carlo juarez, you like to be called carlo juarez, your not going to say anything carlo juarez then starts making reference to god, saying god my father, they all deserve to today, god my father pt continually esclating as staff is in the room. pt raising voice louder and louder, saying larry, larry matos repetitively. pt states im not going to eat my breakfast if you give me a shot against my will. pt raising upper body off bed, defiantly angry, intimidating, impulsive and unpredictable.
--- NOTE | 2018-09-26 09:04 | PC.NURSE ---
NUCLEAR DESIGN ENGINEER Note: Refused to eat meal tray.
--- NOTE | 2018-09-26 09:07 | PC.NURSE ---
CAGE MAKER MACHINE Note: Patient lying quietly at moment. [place] juice provided and next to bed. No outbursts in last 15 minutes.
--- NOTE | 2018-09-26 09:09 | PC.NURSE ---
WARE CARRIER/ELSIE Note: Doctor came in to try and speak with patient. Patient asked when can I go to the mission in [place]?, when Doctor tried to give patient update, patient refused to listen and kept interrupting and yelling bitch fake doctor who doesn't deserve to live.
--- NOTE | 2018-09-26 09:22 | PC.NURSE ---
PIT CLERK NOTE: Patient currently lying quietly and has been doing so for last 5 minutes. However whenever he hears noise in the hallway or staff interacting with patient next door immediately becomes very agitated again and starts yelling out.
--- NOTE | 2018-09-26 09:37 | PC.NURSE ---
DIRECTOR OF COLLECTIONS NOTE: No outbursts in last 15 minutes.
--- NOTE | 2018-09-26 09:39 | PC.NURSE ---
TEMPLATE FITTER NOTE: Patient now yelling again about his court date tomorrow and calling me larry and carlo when I try and answer his questions.
--- NOTE | 2018-09-26 09:53 | PC.NURSE ---
CONTAINER REPAIRER Note: Patient asked for urinal and gave it to him to use. While helping asked me Whats the closest planet to planet [place]? when i said I did not know he called me a dumb bitch.
--- NOTE | 2018-09-26 09:56 | PC.NURSE ---
PRIMARY CLINICIAN Note: asked patient if he would like food, he said yes, but when I brought it to him he refused it. Then began asking when he was going to leave. Let him know the staff is working on finding him placement. He said I am lying, deserve to , and am a dumb bitch.
--- NOTE | 2018-09-26 10:07 | PC.NURSE ---
PUBLIC SPACE ATTENDANT Note: Patient currently quiet in bed and laying down, but moving around quite frequently in bed. Since last note no recent outbursts.
--- NOTE | 2018-09-26 10:22 | PC.NURSE ---
EMAIL PRODUCTION SPECIALIST NOTE: Patient called for urinal and assisted him. Then began yelling and asking how long we're going to illegally keep him here. After several outburst now lying down and quiet.
--- NOTE | 2018-09-26 10:40 | PC.NURSE ---
SECOND WATCH SERGEANT NOTE: Patient asked for warm blanket. Gave him 2 new warm blankets and tried to change his sheets but refused. Asked him long were going to keep him here illegally and said everyday we keep him here means 111,000 days we will not be reborn. Reminded patient there is orange juice next to bed if he wants it. Refused food.
--- NOTE | 2018-09-26 10:53 | PC.NURSE ---
BAR TENDER NOTE: Patient has been lying quietly for last 15 minutes.
--- NOTE | 2018-09-26 11:07 | PC.NURSE ---
DOUBLE SURFACE OPERATOR NOTE: No outbursts in last 15 minutes. Has been laying quietly in bed.
--- NOTE | 2018-09-26 11:15 | PC.NURSE ---
EDITOR PUBLICATIONS NOTE: COUNTY HISTORIAN came in to talk with patient to try and help him. Became VERY agitated. Repeatedly yelling that he wants to go to [facility] in [place]. COUNTY HISTORIAN tried to explain they will call and see if they will take him. Repeatedly called her bitch and dumb and said we're going to and go to hell.
--- NOTE | 2018-09-26 11:22 | PC.NURSE ---
SPECIAL EDUCATION CASE MANAGER NOTE: Patient currently laying down and quiet but continues to periodically yell out to staff offensive words and talk to himself and to God. Especially anytime can hear staff outside of his room becomes very agitated and begins yelling out. Still refusing food and orange juice provided and in room with him but has not drank any yet.
--- NOTE | 2018-09-26 11:37 | PC.NURSE ---
UNINDENTURED APPRENTICE Note: patient lying quietly in bed. No outbursts in the last 15 minutes.
--- NOTE | 2018-09-26 12:01 | PC.NURSE ---
SUPERVISOR POLICY CHANGE CLERKS/MANAGER FRONT OFFICE Note: Pt. is sleeping and calm. Pt, repositioned him self independently in bed. Pt. has refused meals and fluids that have been provided. RN notified.
--- NOTE | 2018-09-26 12:12 | PC.NURSE ---
RECREATION FACILITY ATTENDANT NOTE: Patient yelling out asking if hes going to make it to court tomorrow to see Autumn. Then talking to God saying we do not deserve to live because do not know the answer.
--- NOTE | 2018-09-26 12:21 | PC.NURSE ---
explained to patient the md wants more blood drawn. pt starts yelling out no, no god my father they are disobeying me pt admittedly no pt yelling out i have court tomorrow i am here illegally answer the question bitches, answer the questions punk.
--- NOTE | 2018-09-26 12:30 | PC.NURSE ---
OUTSIDE BARREL LATHE OPERATOR NOTE: Patient laying quietly at moment. When nurse when in previously to try and draw blood become very agitated and yelled and refused treatment.
--- NOTE | 2018-09-26 12:45 | PC.NURSE ---
URGENT CARE NURSE PRACTITIONER NOTE: Patient laying quietly for last 15 minutes with no outbursts.
--- NOTE | 2018-09-26 13:01 | PC.NURSE ---
FINISHING OPERATOR NOTE: Patient has been laying quietly for the last 15 minutes.
--- NOTE | 2018-09-26 13:06 | PC.NURSE ---
HIDES SOAKER NOTE: Patient yelling out that he wants us all to and will laugh when we do. Still talking to God in room.
--- NOTE | 2018-09-26 13:10 | PC.NURSE ---
DRY JANITOR NOTE: Went in with RN Umm and Lam to assist with drawing blood as ordered by Patient was extremely agitated and aggressive. Repeatedly telling us we do not deserve to live and should , attempting to punch Lam and myself, and putting his hand into the shape of a gun and pretending to shoot it at the three of us. Has been using urinal all day long and as soon as left patient intentionally peed onto the floor.
--- NOTE | 2018-09-26 13:14 | PC.NURSE ---
CUSTODIAL MAINTENANCE WORKER NOTE: Saying he can't wait for all of us to and go to hell. That we deserve to and remain in hell punks where he can give us correct punishment.
[2018-09-26] MEDS: HALOPERIDOL 5 MG/ML VIAL IM (13:15)
[2018-09-26] MEDS: diphenhydrAMINE 50 MG/ML VIAL IM (13:15)
[2018-09-26] MEDS: LORazepam 2 MG/ML SYRINGE IM (13:15)
[2018-09-26 13:16] LABS: Add Manual Diff / Slide Review NO; Basophils Absolute Auto 100 /uL (0-100); Basophils Percent Auto 0.9 % (0-2); Eosinophils Absolute Auto 100 /uL (0-450); Eosinophils Percent Auto 0.8 % (2-4); Hematocrit 45.3 % (41-53); Hemoglobin 14.5 g/dL (13.5-17.5); Lymphocytes Absolute Auto 2100 /uL (1100-4500); Lymphocytes Percent Auto 29.1 % (25-40); Mean Corpuscular Hemoglobin 29.9 PG (26-34); Mean Corpuscular Volume 93.7 fL (80-100); Monocytes Absolute Auto 800 /uL (0-900); Monocytes Percent Auto 10.3 % (3-14); Neutrophils Absolute Auto 4400 /uL (1500-7000); Neutrophils Percent Auto 58.9 % (50-75); Platelet Count 357 X10^3/uL (150-400); Red Blood Cell Count 4.84 X10^6/uL (4.5-5.9); Red Cell Distribution Width 14.5 % (11.6-14.8); White Blood Cell Count 7.4 X10^3/uL (4.5-11.0)
--- NOTE | 2018-09-26 13:21 | PC.NURSE ---
CURRICULUM SPECIALIST NOTE: Patient requesting lunch tray. Told him we are waiting for the cafeteria to bring it and offered him crackers and a sandwich while he waits. Told me to ask God about that and refused the snacks.
[2018-09-26 13:28] LABS: Alanine Aminotransferase 25 IU/L (21-72); Albumin 4.5 g/dL (3.5-5.0); Albumin Globulin Ratio 1.3 (1.0-2.8); Alkaline Phosphatase 213 U/L (38-126); Aspartate Aminotransferase 21 IU/L (17-59); BUN Creatinine Ratio 21.4 (6-22); Bilirubin Total 0.8 mg/dL (0.2-1.3); Blood Urea Nitrogen 15 mg/dL (9-20); Calcium 9.5 mg/dL (8.4-10.2); Carbon Dioxide 29 mmol/L (22-32); Chloride 101 mmol/L (98-107); Estimated Glomerular Filt Rate > 60.0 mL/min (>60); Globulin 3.6 g/dL (1.7-4.1); Glucose 96 mg/dL (70-100); HEMOLYSIS < 15 (0-50); Potassium 4.3 mmol/L (3.4-5.1); Sodium 140 mmol/L (137-145); Total Protein 8.1 g/dL (6.3-8.2)
--- NOTE | 2018-09-26 13:42 | PC.NURSE ---
EMPLOYEE COMMUNICATIONS MANAGER Patient keeps yelling out for lunch, lunch and snacks were offered but Pt refused.
--- NOTE | 2018-09-26 13:50 | PC.NURSE ---
COMPLIANCE SPEC Patient repositioned himself in the bed, patient was sitting up asking where his son had gone that he had been there just a minuet ago , patient still is yelling out hello what was for lunch when is lunch
--- NOTE | 2018-09-26 13:58 | PC.NURSE ---
MOTOR HOTEL MANAGER Patient urinated all over floor, patient is eating a cheese stick and drinking a juice box (orange juice) currently not having any outburst while eating and drinking juice
--- NOTE | 2018-09-26 14:16 | PC.NURSE ---
MAGGI Pt is yelling out asking for a phone to make a phone call.
--- NOTE | 2018-09-26 14:38 | CM.SWNOTE ---
Working in collaboration today w/Dr Mcginnis, RITA Cole and BIRGIT Damon to secure psychiatric placement. Dion remains aggressive, agitated and continues to meet criteria for detainment for psych placement. No beds as of this morning. This MANAGER STRATEGIC ALLIANCES received VM from Marisol this AM and then placed call to Monique at [facility] bed placement and Tye w/A triage line. Inevitably Marisol was dispatched to the ER again today and was attempting to secure a bed at [facility], although the process was slow and arduous. No other beds available for [facility] placement. TC from Marisol this afternoon; she was leaving the ER and had teed up all needed ppk to transfer pt from our ER to [facility] if they accepted Dion ([facility] was awaiting some updated lab results). If Dion is not accepted, another conversation will be needed (LRO?) d/t psychiatric bed availability being very limited in [facility] at this time and the length of time this gentlemen has spent in the ER. Following. Unsure if Dion will be transferred tonight or ? RITA Castro
--- NOTE | 2018-09-26 14:46 | PC.NURSE ---
Repeatedly asking for belongs in his green backpack and calling names when mentioned that it can given to him.
--- NOTE | 2018-09-26 15:20 | PC.NURSE ---
Pt awake, alert, yelling out none of these bitches deserve to live lord, oriented to self, appears to have visual hallucinations, points at wall and states hand me that phone and nurse epidemiologist, appears to be conversing with auditory hallucination, yelling fuck you too, declined offered water, asking for and using urinal to void appropriately
--- NOTE | 2018-09-26 15:29 | PC.NURSE ---
Becoming very agitated when not given his belongs, cursing at the staff
--- NOTE | 2018-09-26 15:30 | PC.NURSE ---
pt calling out. When asked what he needed pt states here is question for the doc. why is he a punk bitch cum guzzling child molester? no able to redirect, 1:1 obs continues, bed low position locked
--- NOTE | 2018-09-26 15:37 | PC.NURSE ---
Refuse to have brief change
--- NOTE | 2018-09-26 15:40 | PC.NURSE ---
refuse to have breif change
--- NOTE | 2018-09-26 15:40 | PC.NURSE ---
Nursing summary note: Pt admitted to ED 53 hours ago related to behavior that was placing himself and others at risk. Since that time pt has continued to be uncooperative, calling out, delusional and threatening to staff. Please see psych notes / review for details. Pt is alert but declines to answer when asked if he knows where he is. Answers 'Your a f*&cking Cunt do you know where you are?. Taking po fluids intermittently. Takes pudding and picks at meals, occasionally taking full amount, occasionally refusing. Skin is pink / warm / dry. Moist mucus membranes. Pt is independently moving in bed. Usually uses wheelchair for mobility. Pt falls asleep easily, does not appear to be in pain. Continue to search for placement. Pt has 1:1 sitter at door. Pt is usually calmer when there is decreased stimulation and interaction.
--- NOTE | 2018-09-26 16:02 | PC.NURSE ---
Pt requesting wheel chair. At bedside. Pt self transferred. Asked when I would be because 'if I had a gun I would shoot you in the head'. Pt now in wheelchair attempting to leave. Door shut for pt safety. Provider aware. Order placed for seclusion/restraint.
--- NOTE | 2018-09-26 16:03 | PC.NURSE ---
Is given the wheelchair and a scrub pants and patient safely got off the bed into his wheelchair. The door is now close since patient attempt to leave the room.
--- NOTE | 2018-09-26 16:25 | PC.NURSE ---
Seems like the patient is resting at the moment
--- NOTE | 2018-09-26 16:51 | PC.NURSE ---
Patient is resting right now
--- NOTE | 2018-09-26 17:08 | PC.NURSE ---
patient is awake yelling for phone
--- NOTE | 2018-09-26 18:20 | PC.NURSE ---
PATROL AGENT/DOLL REPAIRER Note: Pt. is requesting dinner. PATROL AGENT paced order to kitchen. RN notified. Pt. yelled but didn't use foul language.
--- NOTE | 2018-09-26 20:00 | PC.NURSE ---
JAVA SOFTWARE ENGINEER/ELSIE Note: Pt. talked w/JAVA SOFTWARE ENGINEER and stated How long am I staying here?... did not use foul language. JAVA SOFTWARE ENGINEER reassured Pt. we are trying to do the best we can to get you in place. Pt. wants one bed room apt. with w/c ass. JAVA SOFTWARE ENGINEER reassured Pt. that we would relay the message to SW. Pt. cont. to talk to him self god they won't obey. god, they don't deserve to live. Pt. then laid back down and covered face w/blanket. RN Notified.
--- NOTE | 2018-09-26 20:28 | PC.NURSE ---
Pt continues to interact with hallucinations, generally hostile to staff, answering questions with when will you and you'll be in hell, stated to nurse I'd put a gun right to your forehead and blam blam blam, continues to use urinal for voiding, frequently repositions self, food/fluids offered frequently, taking orange juice/crackers, refused meal tray
--- NOTE | 2018-09-26 20:34 | PC.NURSE ---
Pt has slept for approx 90 minutes with normal resp rate/depth following a 20 minute period during which he yelled mutherfucking larry matos repeatedly despite attempts to redirect
--- NOTE | 2018-09-26 21:00 | PC.NURSE ---
Patient woke up asking to go out for a smoke, when denied he stated that he is being held against his will and that he is giving me five minutes to come back with an answer from the nurse whether he can go smoking.
[2018-09-26 22:17] VITALS: RESP 16
--- NOTE | 2018-09-26 22:17 | PC.NURSE ---
Addendum entered by Abby Jones CNA 09/26/18 22:21: Original Note: MAGGI/ELSIE Note: Attempted to take vitals signs on Patient. Pt. refused. no and continued to talk to him self and talk to god. RN notified.
--- NOTE | 2018-09-26 23:35 | PC.NURSE ---
HEAD OF MATHEMATICS note: asking what time it is, told him, asked if he wanted to use the bathroom, a snack or anything to drink. Refused. Went back to sleep.
--- NOTE | 2018-09-26 23:47 | PC.NURSE ---
2347 Patient voided on the bed. He refused a linen change. He refused a new brief.
--- NOTE | 2018-09-26 23:50 | PC.NURSE ---
2350 wanting take a shower, asking if he went to the store, if he's bought marijuana today. Explained to him he has been in the hospital all day. He asked again if he's gone to the store to buy marijuana.
--- NOTE | 2018-09-27 00:33 | PC.NURSE ---
0033 Patient took a shower. Spent almost 30 minutes in the shower. Was rude to staff, ranted about God. Patient washed hair and body. Got vital signs. Voided in the shower.
[2018-09-27 00:34] VITALS: BP 109/79; PULSE 84; RESP 18
--- NOTE | 2018-09-27 01:02 | ED_ITS ---
HPI - Psych General Chief Complaint: Psychiatric Symptoms Stated Complaint: Mental Eval/agitation Time Seen by Provider: 09/24/18 10:00 Source: patient, EMS and police Mode of arrival: EMS Related Data Home Medications Medication Instructions Recorded Confirmed aripiprazole 10 mg PO DAILY 09/25/18 09/25/18 benztropine 1 mg PO BID 09/25/18 09/25/18 gabapentin 300 mg PO TID 09/25/18 09/25/18 haloperidol 5 mg PO BID 09/25/18 09/25/18 haloperidol 20 mg PO BEDTIME 09/25/18 09/25/18 naloxone [Narcan] 1 dose INTRANASAL DIRECTED 09/25/18 09/25/18 oxycodone 5 mg PO Q4-6H PRN 09/25/18 09/25/18 Allergies Allergy/AdvReac Type Severity Reaction Status Date / Time No Allergy Information Allergy Verified 09/26/18 12:01 Available Exam Initial Vital Signs Initial Vital Signs: Vital Signs Temperature 97.6 F 09/24/18 10:00 Pulse Rate 61 09/24/18 10:00 Respiratory Rate 15 09/24/18 10:00 Blood Pressure 115/61 09/24/18 10:00 Pulse Oximetry 100 09/24/18 10:00 Course Orders Ordered: Discontinued Medications Diphenhydramine HCl (Benadryl) 50 mg IM NOW ONE Stop: 09/24/18 10:28 Last Admin: 09/24/18 09:59 Dose: 50 mg Diphenhydramine HCl (Benadryl) 50 mg IM NOW ONE Stop: 09/26/18 12:33 Last Admin: 09/26/18 13:15 Dose: 50 mg Diphenhydramine HCl (Benadryl) 25 mg IM NOW ONE Stop: 09/27/18 18:30 Last Admin: 09/27/18 18:33 Dose: 25 mg Haloperidol (Haldol) 5 mg IM NOW ONE Stop: 09/24/18 10:28 Last Admin: 09/24/18 09:59 Dose: 5 mg Haloperidol (Haldol) 5 mg IM NOW ONE Stop: 09/25/18 03:55 Last Admin: 09/25/18 04:02 Dose: Not Given Haloperidol (Haldol) 5 mg IV NOW ONE Stop: 09/26/18 09:19 Last Admin: 09/26/18 10:33 Dose: Not Given Haloperidol (Haldol) 5 mg IM NOW ONE Stop: 09/26/18 12:33 Last Admin: 09/26/18 13:15 Dose: 5 mg Haloperidol (Haldol) 5 mg IM NOW ONE Stop: 09/27/18 18:30 Last Admin: 09/27/18 18:33 Dose: 5 mg Lorazepam (Ativan) 2 mg IM NOW ONE Stop: 09/24/18 10:29 Last Admin: 09/24/18 09:59 Dose: 2 mg Lorazepam (Ativan) 2 mg IM NOW ONE Stop: 09/26/18 12:33 Last Admin: 09/26/18 13:15 Dose: 2 mg Olanzapine (Zyprexa) 10 mg PO NOW ONE Stop: 09/25/18 13:07 Last Admin: 09/25/18 13:26 Dose: Not Given Olanzapine (Zyprexa) 10 mg IM NOW ONE Stop: 09/25/18 13:12 Last Admin: 09/25/18 13:26 Dose: 10 mg Olanzapine (Zyprexa) 10 mg IM NOW ONE Stop: 09/26/18 08:44 Last Admin: 09/26/18 08:50 Dose: 10 mg Vital Signs - 8 hr 09/26/18 22:17 09/27/18 00:34 Pulse Rate 84 Respiratory Rate 16 18 Blood Pressure [Left Arm] 109/79 Mental Status Exam Patient Appearance: Well Groomed Level of Consciousness: Alert Speech Pattern: Animated, Clear, Includes Profanity and Spontaneous Speech Mood Description: Angry, Hostile and Suspicious Ability to Follow Directions: Excellent Thought Process:: Flight of ideas and Confabulating Physical Status Respirations: Normal respiratory rate Cardiac: Regular Rate Circulation: Moves all extremities Assessment of Situation Behavior necessitating restraint: Paranoid/Delusional Restraint risks explained to patient: Yes MDM - Psych Lab Data Result diagrams: 09/26/18 13:10 09/26/18 13:10 Lab Results 09/24/18 09/24/18 09/24/18 Range/Units 11:08 11:08 11:08 WBC 7.9 (4.5-11.0) X10^3/uL RBC 4.19 L (4.5-5.9) X10^6/uL Hgb 12.7 L (13.5-17.5) g/dL Hct 39.2 L (41-53) % MCV 93.6 (80-100) fL MCH 30.4 (26-34) PG MCHC 32.4 (30-36) % RDW 14.8 (11.6-14.8) % Plt Count 323 (150-400) X10^3/uL Neut % (Auto) 71.2 (50-75) % Lymph % (Auto) 21.1 L (25-40) % Mower % (Auto) 7.2 (3-14) % Eos % (Auto) 0.4 L (2-4) % Baso % (Auto) 0.1 (0-2) % Neut # (Auto) 5600 (8881-4268) /uL Lymph # (Auto) 1700 (7439-2726) /uL Mower # (Auto) 600 (0-900) /uL Eos # (Auto) 0 (0-450) /uL Baso # (Auto) 0 (0-100) /uL Sodium 140 (137-145) mmol/L Potassium 4.5 (3.4-5.1) mmol/L Chloride 104 (98-107) mmol/L Carbon Dioxide 27 (22-32) mmol/L BUN 17 (9-20) mg/dL Creatinine 0.70 (0.66-1.25) mg/dL Estimated GFR > 60.0 (>60) mL/min BUN/Creatinine Ratio 24.3 H (6-22) Glucose 99 (70-100) mg/dL Calcium 9.0 (8.4-10.2) mg/dL Total Bilirubin 0.7 (0.2-1.3) mg/dL AST 23 (17-59) IU/L ALT 29 (21-72) IU/L Alkaline Phosphatase 214 H (38-126) U/L Total Protein 7.6 (6.3-8.2) g/dL Albumin 4.3 (3.5-5.0) g/dL Globulin 3.3 (1.7-4.1) g/dL Albumin/Globulin Ratio 1.3 (1.0-2.8) TSH 0.94 (0.47-4.68) uIU/mL Salicylates < 1.0 (<20) mg/dL Urine Opiates Screen (Negative) Ur Oxycodone Screen (Negative) Urine Methadone Screen (Negative) Acetaminophen < 10 L (10-30) ug/mL Ur Barbiturates Screen (Negative) U Tricyclic Antidepress (Negative) Ur Phencyclidine Scrn (Negative) Ur Amphetamines Screen (Negative) U Methamphetamines Scrn (Negative) Ur MDMA Scrn (Ecstasy) (Negative) U Benzodiazepines Scrn (Negative) Urine Cocaine Screen (Negative) U Marijuana (THC) Screen (Negative) Ethyl Alcohol < 10 mg/dL 09/24/18 09/26/18 09/26/18 Range/Units 11:23 13:10 13:10 WBC 7.4 (4.5-11.0) X10^3/uL RBC 4.84 (4.5-5.9) X10^6/uL Hgb 14.5 (13.5-17.5) g/dL Hct 45.3 (41-53) % MCV 93.7 (80-100) fL MCH 29.9 (26-34) PG MCHC 32.0 (30-36) % RDW 14.5 (11.6-14.8) % Plt Count 357 (150-400) X10^3/uL Neut % (Auto) 58.9 (50-75) % Lymph % (Auto) 29.1 (25-40) % Mower % (Auto) 10.3 (3-14) % Eos % (Auto) 0.8 L (2-4) % Baso % (Auto) 0.9 (0-2) % Neut # (Auto) 4400 (8625-3763) /uL Lymph # (Auto) 2100 (2793-7761) /uL Mower # (Auto) 800 (0-900) /uL Eos # (Auto) 100 (0-450) /uL Baso # (Auto) 100 (0-100) /uL Sodium 140 (137-145) mmol/L Potassium 4.3 (3.4-5.1) mmol/L Chloride 101 (98-107) mmol/L Carbon Dioxide 29 (22-32) mmol/L BUN 15 (9-20) mg/dL Creatinine 0.70 (0.66-1.25) mg/dL Estimated GFR > 60.0 (>60) mL/min BUN/Creatinine Ratio 21.4 (6-22) Glucose 96 (70-100) mg/dL Calcium 9.5 (8.4-10.2) mg/dL Total Bilirubin 0.8 (0.2-1.3) mg/dL AST 21 (17-59) IU/L ALT 25 (21-72) IU/L Alkaline Phosphatase 213 H (38-126) U/L Total Protein 8.1 (6.3-8.2) g/dL Albumin 4.5 (3.5-5.0) g/dL Globulin 3.6 (1.7-4.1) g/dL Albumin/Globulin Ratio 1.3 (1.0-2.8) TSH (0.47-4.68) uIU/mL Salicylates (<20) mg/dL Urine Opiates Screen Negative (Negative) Ur Oxycodone Screen Negative (Negative) Urine Methadone Screen Negative (Negative) Acetaminophen (10-30) ug/mL Ur Barbiturates Screen Negative (Negative) U Tricyclic Antidepress Negative (Negative) Ur Phencyclidine Scrn Negative (Negative) Ur Amphetamines Screen Negative (Negative) U Methamphetamines Scrn Negative (Negative) Ur MDMA Scrn (Ecstasy) Negative (Negative) U Benzodiazepines Scrn Negative (Negative) Urine Cocaine Screen Negative (Negative) U Marijuana (THC) Screen Positive H (Negative) Ethyl Alcohol mg/dL Urine Dip Bedside Urine Glucose Negative Bedside Urine Bilirubin - Negative Bedside Urine Ketone - Negative Urine Specific [place] 1.020 Bedside Urine Occult Blood - Negative Bedside Urine pH 6.0 Bedside Urine Protein - Negative Bedside Urine Urobilinogen - Negative Bedside Urine Nitrite - Negative Bedside Urine Leukocytes - Negative Esterase Discharge Plan Departure Patient Disposition: [facility] Clinical Impression: Acute psychosis Discharge Date/Time: 09/27/18 19:05 Interventions: ED Discharge Assessment Last Done: 09/27/18 19:14 Prescriptions: No Action haloperidol 5 mg Tablet 5 mg PO BID RF: 0 haloperidol 10 mg Tablet 20 mg PO BEDTIME RF: 0 benztropine 1 mg Tablet 1 mg PO BID RF: 0 gabapentin 300 mg Capsule 300 mg PO TID RF: 0 oxycodone 5 mg tablet 5 mg PO Q4-6H PRN (Reason: pain) RF: 0 aripiprazole 10 mg Tablet 10 mg PO DAILY RF: 0 Narcan 4 mg/actuation spray,non-aerosol 1 dose Intranasal DIRECTED RF: 0
--- NOTE | 2018-09-27 02:47 | PC.NURSE ---
0247 CARDIAC CATH TECHNICIAN note patient asleep. Equal rise and fall of chest witnessed.
--- NOTE | 2018-09-27 05:41 | PC.NURSE ---
JIG WORKER patient is relaxing in bed, blanket over head.
--- NOTE | 2018-09-27 06:35 | PC.NURSE ---
PLUMBING INSTRUCTOR note: patient in bed with blanket over his head. Asked if he wanted anything to eat or drink. He asked if he was going to court. I said I didn't know. Patient back in bed.
--- NOTE | 2018-09-27 06:43 | PC.NURSE ---
He appears asleep.his eyes are closed and resp. are even and non labored.
--- NOTE | 2018-09-27 08:05 | PC.NURSE ---
Pt refused vital signs, as well as his breakfast. Pt was asked if he wanted anything to eat or drink, and refused both and became slightly agitated. Pt also inquired about his court date.
--- NOTE | 2018-09-27 08:18 | PC.NURSE ---
Pt is awake and agitated. He is laying in bed with a blanket over his head, and yelling profanities and talking to God about how he is being held against his will and wishes he could kill everyone here.
--- NOTE | 2018-09-27 08:51 | DI.RAD.S_ITS ---
PROCEDURE: XR TOE LT MIN 2V INDICATIONS: black 2nd and 3rd toes TECHNIQUE: 2 views of the left toe(s) acquired. COMPARISON: None. FINDINGS: Bones: There is diffuse osteopenia. No gross fractures or dislocations. No definite bony erosive changes are seen. Osteoarthritic changes throughout left joint are noted. No suspicious bony lesions. Fixation hardware in distal tibial shaft is seen. Soft tissues: No suspicious soft tissue densities. IMPRESSION: Diffuse osteopenia. No definite bony erosive changes or acute fracture or dislocation. Left foot osteoarthritis. Dictated by: Pavel Bass M.D. on 09/27/2018 at 9:28 Approved by: Pavel Bass M.D. on 09/27/2018 at 9:34
--- NOTE | 2018-09-27 08:57 | PC.NURSE ---
Pt is agitated and regularly yells profanities regarding God, how he is held here illegally, his son, and the people of [place].
--- NOTE | 2018-09-27 09:00 | PC.NURSE ---
Pt continued to be agitated when radiology entered his room to X-ray his foot. He continued to yell profanities.
--- NOTE | 2018-09-27 09:13 | PC.NURSE ---
Pt requested breakfast, but continued to refuse vital signs. I gave him his breakfast tray, and he asked for more syrup and orange juice. Both were provided, and patient is sitting upright in bed, eating quietly.
--- NOTE | 2018-09-27 09:20 | PC.NURSE ---
Pt finished his meal, and yelled profanities at me, saying he didn't forgive me for keeping him here illegally.
[2018-09-27 09:43] VITALS: RESP 16
--- NOTE | 2018-09-27 10:50 | PC.NURSE ---
Pt asked when he is going to leave the hospital, and said he had a court date today at 1500.
--- NOTE | 2018-09-27 11:41 | PC.NURSE ---
spoke with Alexei(intake person) at [facility](riya [phone]), requested foot xray faxed to them [phone]. Alexei reports that he will marisa;k to his doctor. states they are still working on bed placement for patient
--- NOTE | 2018-09-27 11:53 | PC.NURSE ---
Pt refusing lunch tray. laying in bed agitated about how he is going to miss his court date.
--- NOTE | 2018-09-27 12:13 | PC.NURSE ---
Pt refused his meal, and yelled profanities about the staff while praying.
--- NOTE | 2018-09-27 12:18 | PC.NURSE ---
Pt requested chuck ted, and when it was given to him he claimed that it had been poisoned, and yelled profanities.
--- NOTE | 2018-09-27 12:23 | PC.NURSE ---
Pt requested turkey sandwich, and continued to yell profanities during his prayers to God about him being kept here illegally.
--- NOTE | 2018-09-27 12:39 | PC.NURSE ---
Pt requested 2 pillows be placed underneath his left leg. This was done, and then he profanely asked how much longer he was going to be held here illegally.
--- NOTE | 2018-09-27 13:21 | PC.NURSE ---
Pt continues to be agitated, sporadically inquiring in a profane manner how much longer he is going to be held here illegally.
--- NOTE | 2018-09-27 13:44 | PC.NURSE ---
Pt continues to yell and demand a different lunch.
--- NOTE | 2018-09-27 13:55 | PC.NURSE ---
Pt calmed down and stopped yelling once he received the turkey sandwich and chips he had requested.
--- NOTE | 2018-09-27 14:11 | PC.NURSE ---
Pt ate sandwich and was given his second chuck ted today. He continued to pray using profane language, and also inquired about where he is going next and whether or not he can wear his street clothes there. He continues to mention how he needs to go to court today.
--- NOTE | 2018-09-27 15:27 | PC.NURSE ---
Pt. is waking up and aggravated, shouting profanities
[2018-09-27 16:37] VITALS: BP 90/58; PULSE 59; RESP 18; O2SAT 99
--- NOTE | 2018-09-27 17:17 | PC.NURSE ---
Meal provided. Soup thrown. Cucumbers thrown. Provided OJ drank 3 of those. Yelling profanities.
--- NOTE | 2018-09-27 17:49 | PC.NURSE ---
pt is awake and shouting again. Constantly asking the time, Asking the people who don't deserve to live I answer his questions when they aren't followed by profanities
--- NOTE | 2018-09-27 18:00 | PC.NURSE ---
Pt calm and laying down again. Five minutes prior, lots of yelling and profanities. He insists we purposely did not give him dinner. We did. He didn't want it because it's not what he ordered
--- NOTE | 2018-09-27 18:28 | PC.NURSE ---
Pt is now yelling profanities at everyone that walks by. tired of tolerating these people on the planey [facility] arrived. Pt should be transferred soon.
[2018-09-27] MEDS: diphenhydrAMINE 50 MG/ML VIAL 25 MG IM (18:33)
[2018-09-27] MEDS: HALOPERIDOL 5 MG/ML VIAL IM (18:33)
[2018-09-27 18:49] VITALS: BP 101/72; PULSE 72; RESP 18; TEMP 36.8; O2SAT 100
--- NOTE | 2018-09-27 18:51 | PC.NURSE ---
pt given Haldol and Benadryl prior to depature from ER. Pt was yelling profanities and [facility] staff requested med to relax him for the ride. Dr. Mcginnis evaluated pt.. med given without difficulty. pt was transferred to [facility] stretcher without incident.
== END 2018-09-27 19:05 | disposition short-term general hospital (02) ==
PROVIDERS: Emergency Medicine; Emergency Provider Emergency Medicine
DX: F23 Brief psychotic disorder (principal); S90.32XA Contusion of left foot, initial encounter
CPT/HCPCS: 36415; 73620; 73660; 80053; 80305; 80320; 80329; 81003; 84443; 85025; 93926; 93971; 96372; 99285; G0480; J1200; J1630; J2060; S0166